=== PATIENT | female | born 1970 | race Caucasian/White ===

== ENCOUNTER 2021-10-20 11:14 | Outpatient (CLI) | payer BC, SELFPAY ==
[2021-10-20 11:19] VITALS: BP 139/87; PULSE 100; RESP 18; TEMP 36.8; O2SAT 99; BMI 29.2
[2021-10-20 11:24] VITALS: BP 145/92; PULSE 100; RESP 20; TEMP 36.7; O2SAT 99
== END 2021-10-20 11:15 | disposition home or self-care (01) ==
PROVIDERS: PCP Family Medicine; Visit Provider Nurse Practitioner
DX: U07.1 COVID-19 (principal)
CPT/HCPCS: 96365

== ENCOUNTER 2022-03-08 15:54 | Outpatient (CLI) | payer BC, SELFPAY ==
--- NOTE | 2022-03-08 15:59 | MM_ITS ---
WS: [id number] BILATERAL 3D TOMOSYNTHESIS DIGITAL SCREENING MAMMOGRAPHY WITH CAD CLINICAL INFORMATION: SCREENING HISTORY: Screening mammogram. No current complaints. COMPARISON: 2018 TECHNIQUE: Bilateral CC and MLO views. FINDINGS: Scattered fibroglandular densities bilaterally. A few incidental intramammary lymph nodes LEFT breast . No suspicious focal mass, asymmetry, calcifications, or architectural distortion. No evidence of ma lignancy. MM/[place] [id number] IMPRESSION: BI-RADS: 2-Benign FOLLOW UP: 1 Year Follow-up Recommend return to annual screening mammography.
== END 2022-03-08 15:55 | disposition home or self-care (01) ==
LOC: RAD 15:56
PROVIDERS: PCP Family Medicine; Visit Provider Family Medicine
DX: Z12.31 Encounter for screening mammogram for malignant neoplasm of breast (principal)
CPT/HCPCS: 77063; 77067

== ENCOUNTER 2024-10-30 12:13 | Outpatient (CLI) | payer BC, SELFPAY ==
--- NOTE | 2024-10-30 12:16 | MM_ITS ---
WS: [id number] Bilateral screening 3D tomosynthesis digital mammogram, 10/30/2024 12:17 PM Clinical Data: SCREENING Comparison: 03/08/2022, 11/14/2018, 08/23/2016, 07/22/2015, 06/10/2014, 06/07/2013, 06/06/2012, 05/18/2011. Findings: No spiculated masses or clustered calcifications are seen. There are no secondary signs of carcinoma . MM/MM scr BI tomosynthesis [id number] Impression: Negative bilateral mammogram unchanged. Recommend annual screening mammograms. BIRADS: 1 - Negative. FOLLOW UP: 1 Year Follow-up DENSITY: There are scattered areas of fibroglandular density. The CAD cash checker was used
== END 2024-10-30 12:14 | disposition home or self-care (01) ==
LOC: RAD 12:14
PROVIDERS: PCP Family Medicine; Visit Provider Family Medicine
DX: Z12.31 Encounter for screening mammogram for malignant neoplasm of breast (principal)
CPT/HCPCS: 77063; 77067

== ENCOUNTER 2025-05-30 08:06 | Outpatient (CLI) | payer BC, SELFPAY ==
[2025-05-30 09:09] LABS: Hematocrit 48.1 % (36-47); Hemoglobin 15.30 g/dL (11.27-16.99); Mean Corpuscular HGB Conc 31.8 g/dL (30-55); Mean Corpuscular Hemoglobin 27.1 pg (27-33); Mean Corpuscular Volume 85.3 fl (85-98); Nucleated Red Blood Cells % 0 %; Platelet Count 319 10^3/cmm (157-399); Red Blood Count 5.64 10^6/uL (3.85-5.65); White Blood Count 6.93 10^3/uL (3.29-11.43)
[2025-05-30 09:38] LABS: Alanine Aminotransferase 25 U/L (0-33); Albumin Level 4.4 g/dL (3.5-5.2); Alkaline Phosphatase 122 U/L (35-105); Anion Gap 15.6 (5-19); Aspartate Amino Transferase 20 U/L (0-32); Blood Urea Nitrogen 15 mg/dL (6-20); Calcium 9.8 mg/dL (8.5-10.5); Carbon Dioxide 25 mmol/L (22-29); Chloride 104 mmol/L (98-107); Cholesterol 215 mg/dL (0-200); Globulin 3.3 g/dL (1.3-4.6); Glucose 93 mg/dL (65-115); HDL Cholesterol 62 mg/dL (60-100); Osmolality Calculated 291 mOsm/kg (285-295); Potassium 4.6 mmol/L (3.5-5.1); Sodium 140 mmol/L (136-145); Total Protein 7.7 g/dL (6.6-8.7); Triglycerides 128 mg/dL (0-150)
[2025-05-30 09:51] LABS: HIV 1 & 2 Antigen Non-Reactive (Non-Reactiv)
[2025-05-30 09:55] LABS: Hepatitis B Surface Antigen Non-Reactive (Nonreactive)
== END 2025-05-30 08:07 | disposition home or self-care (01) ==
PROVIDERS: PCP Family Medicine; Visit Provider Nurse Practitioner Family
DX: L40.0 Psoriasis vulgaris (principal)
CPT/HCPCS: 36415; 80048; 80061; 80076; 85025; 86480; 86704; 86706; 86803; 87340; 87806